=== PATIENT | female | born 1985 ===

== ENCOUNTER 2018-04-23 14:21 | Emergency (ER) | payer SELFPAY ==
[2018-04-23 15:10] VITALS: BP 168/93
== END 2018-04-23 16:40 | disposition left against medical advice (07) ==
LOC: ED 14:21
DX: R07.9 Chest pain, unspecified (principal); Z53.21 Procedure and treatment not carried out due to patient leaving prior to being seen by health care provider
CPT/HCPCS: 93005; 93010